=== PATIENT | female | born 1965 | race Caucasian/White ===

== ENCOUNTER 2019-12-26 05:37 | Inpatient (IN) ==
--- NOTE | 2019-12-19 11:04 | EKG Report ---
Test Performed on : 12/19/2019 10:58:56 AM Test Reason : PAT Blood Pressure : / mmHG Vent. Rate : 067 BPM Atrial Rate : 067 BPM P-R Int : 120 ms QRS Dur : 088 ms QT Int : 440 ms P-R-T Axes : 058 067 056 degrees QTc Int : 464 ms Normal sinus rhythm. with sinus arrhythmia. Nonspecific T wave abnormality Prolonged QT Abnormal ECG No previous ECGs available Confirmed by Tyler MCCAULEY, Radu Jaeger ([id number]) on 12/20/2019 7:30:35 AM
[2019-12-19 11:21] LABS: URINE SOURCE VOIDED
[2019-12-19 11:43] LABS: BILIRUBIN URINE NEGATIVE (NEGATIVE); BLOOD URINE SMALL (NEGATIVE); COLOR YELLOW; GLUCOSE URINE NEGATIVE (NEGATIVE); KETONE URINE NEGATIVE (NEGATIVE); LEUKOCYTES URINE NEGATIVE (NEGATIVE); NITRITE URINE NEGATIVE (NEGATIVE); PROTEIN URINE NEGATIVE (NEGATIVE); SP GRAVITY URINE 1.024; TURBIDITY URINE CLEAR (CLEAR); UROBILINOGEN URINE NORMAL (NORMAL)
[2019-12-19 11:44] LABS: UR EPITHELIAL CELLS <10 /HPF (<10); URINE BACTERIA NEGATIVE /HPF; URINE WBC <10 /HPF (<10)
[2019-12-19 12:15] LABS: BASO# 0.36 X1000 (0.0-0.2); BASO% 3.5 % (0.0-0.8); EOS# 0.53 X1000 (0.0-0.7); EOS% 5.1 % (0.0-10.0); HEMATOCRIT 33.3 % (37.0-47.0); HEMOGLOBIN 9.8 g/dL (12.0-16.0); LYMPH# 3.05 X1000 (1.2-3.4); LYMPH% 29.3 % (20.5-51.1); MCH 21.3 PG (27-31); MCHC 29.4 g/dL (33-37); MCV 72.2 FL (81-99); MONO# 0.56 X1000 (0.11-0.59); MONO% 5.4 % (1.7-9.3); NEUT# 5.92 X1000 (1.4-6.5); NEUT% 56.7 % (42.2-75.2); PLT 494 X1000 (130-400); RBC 4.61 XMIL (4.2-5.4); WBC 10.42 X1000 (4.8-10.8)
[2019-12-19 12:21] LABS: EOS 6 % (1-10); LYMPHS 30 % (21-51); MONO 4 % (1-9); SEGS 60 % (42-75)
[2019-12-19 12:22] LABS: HYPOCHROM 1+; MICROCYTOSIS 2+; POIKILOCYTOSIS 1+
--- NOTE | 2019-12-25 21:15 | HISTORY AND PHYSICAL ---
HISTORY OF PRESENT ILLNESS: Mrs. Ferrari is a 54-year-old G3, P0, who presents with complaint of abnormal uterine bleeding/heavy menstrual bleeding-leiomyoma. The patient describes a 10 year history of heavy menstrual bleeding although describes menstrual cycle lasting only 3 days out of the month, reports bleeding is significantly heavy during the 3 days. The patient was counseled prior regarding hysterectomy to help resolve heavy menstrual bleeding secondary to large intramural fibroids. She also reports use of adult diaper when on menstrual cycle to prevent accidents from occurring. The patient denies shortness of breath, chest pain, dizziness, or overt tiredness. PAST MEDICAL HISTORY: Significant for kidney stones, hypertension, migraines. SURGICAL HISTORY: Nephrolithotomy, brain surgery, breast augmentation, lithotripsy, sinus surgery. [employer]IST HISTORY: Last menstrual period 12/05/2019. Pap smear negative for intraepithelial lesions or malignancies. Menarche age 15. 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 Denies gonorrhea, chlamydia, or Trichomonas exposure. OBSTETRICAL HISTORY: G 3, P 0, reports 3 prior miscarriages. SOCIAL HISTORY: Denies tobacco, alcohol, or drug use. MEDICATIONS: Fluticasone nasal spray. Losartan 50 mg daily. Montelukast 10 mg p.o. daily. Diltiazem 30 mg p.o. daily. ALLERGIES: No known drug allergies. FAMILY HISTORY: Noncontributory.Vital signs: Temperature 97.8 degrees Fahrenheit, pulse rate 64, blood pressure 140/88, height 5 feet 4 inches tall, weight 166 pounds, body mass index 28.5 kg/m2. PHYSICAL EXAMINATION: GENERAL: No acute distress. Alert, awake, oriented x3. CARDIOVASCULAR: Regular rate and rhythm. Positive S1, S2. RESPIRATORY: Clear to auscultation bilaterally. Negative rhonchi, rales or wheezing. ABDOMEN: Soft, nontender to palpation. Uterine fibroid palpated at the umbilicus. EXTREMITIES: No calf tenderness. No pedal edema. LABORATORY: WBCs 10.42, hemoglobin 9.8, hematocrit 33.3, platelets 494,000, blood type A positive. Creatinine 0.7. Urine test negative. EKG normal sinus rhythm with sinus arrhythmias. ASSESSMENT: Ms. Ferrari is a 54-year-old G3, P0, with abnormal uterine bleeding/heavy menstrual bleeding-leiomyoma. PLAN: Admit for total abdominal hysterectomy via midline vertical incision due to uterine size. 1. Ultrasound showed a 12 cm uterus with a 12 cm fundal fibroid. 2. Patient counseled on alternatives to surgical procedure, risk and benefits of procedure. Risks, not limited to infection, bleeding, injury to surrounding organs including the bowel, bladder, and ureters. The patient understands risks and agrees to procedure. Discussed removal of bilateral tubes and ovaries. The patient agrees at the age of 54, per recommendations will remove bilateral tubes and ovaries to eliminate potential reoperation from potential ovarian pathology or adnexal pathology. 1. The patient understands with bilateral salpingo-oophorectomy will place the patient in surgical menopause and discuss the potential use of hormonal replacement therapy and risks associated with hormonal replacement therapy. 2. The patient advised NPO midnight after midnight prior to procedure. 3. Plan for admission for least 2 to 3 days post procedure. 4. Plan for IV prophylactic antibiotics 30 minutes prior to procedure incision. [email or web address]
[2019-12-26] MEDS ORDERED: KEFZOL 1 GM/D5W 2 GM/100 ML IVPB ONE (06:13)
[2019-12-26] MEDS ORDERED: LR 1,000 ML ONE ×2 (06:13→09:23)
[2019-12-26] MEDS ORDERED: FENTANYL ONE (06:23)
[2019-12-26] MEDS ORDERED: VERSED ONE ×2 (06:23→07:06)
[2019-12-26] MEDS ORDERED: DIPRIVAN 1% ONE (06:23)
[2019-12-26] MEDS ORDERED: SODIUM CHLORIDE 0.9% 10 ML ONE (06:27)
[2019-12-26] MEDS ORDERED: NORCURON ONE (06:27)
[2019-12-26] MEDS ORDERED: QUELICIN (DOSE) ONE (06:27)
[2019-12-26] MEDS ORDERED: ROBINUL ONE ×2 (06:27→08:08)
[2019-12-26] MEDS ORDERED: XYLOCAINE-MPF 2% ONE (06:27)
--- NOTE | 2019-12-26 06:48 | H&P REVIEW ---
H&P Update H&P Review: H&P was reviewed and patient was examined, No change has occurred in the patient's condition
[2019-12-26] MEDS ORDERED: DECADRON ONE (07:31)
[2019-12-26 07:47] LABS: URINE SOURCE CATH
[2019-12-26] MEDS ORDERED: OFIRMEV 1000 MG/ISOTONIC SOLN 1,000 MG/100 ML BOTTLE ONE (07:49)
[2019-12-26] MEDS ORDERED: ZOFRAN ONE (07:57)
[2019-12-26] MEDS ORDERED: EPHEDRINE ONE (08:06)
[2019-12-26] MEDS ORDERED: NEOSTIGMINE ONE (08:08)
[2019-12-26 08:29] LABS: BILIRUBIN URINE NEGATIVE (NEGATIVE); BLOOD URINE NEGATIVE (NEGATIVE); COLOR YELLOW; GLUCOSE URINE NEGATIVE (NEGATIVE); KETONE URINE NEGATIVE (NEGATIVE); LEUKOCYTES URINE NEGATIVE (NEGATIVE); NITRITE URINE NEGATIVE (NEGATIVE); PROTEIN URINE NEGATIVE (NEGATIVE); SP GRAVITY URINE 1.015; TURBIDITY URINE CLEAR (CLEAR); UROBILINOGEN URINE NORMAL (NORMAL)
[2019-12-26 08:31] LABS: UR EPITHELIAL CELLS <10 /HPF (<10); URINE BACTERIA NEGATIVE /HPF; URINE RBC <10 /HPF (<10); URINE WBC <10 /HPF (<10)
[2019-12-26] MEDS ORDERED: DULCOLAX PR PRN (09:05)
[2019-12-26] MEDS ORDERED: ZOFRAN IV PRN (09:05)
[2019-12-26] MEDS: MORPHINE PCA ONE ×2 (09:10→15:00)
[2019-12-26] MEDS: MORPHINE ONE ×4 (09:16→15:00)
[2019-12-26] MEDS ORDERED: PHENERGAN IV PRN (09:45)
[2019-12-26] MEDS ORDERED: LR 1,000 ML IV SCH (09:45)
[2019-12-26] MEDS ORDERED: MORPHINE PCA IV PRN (09:45)
[2019-12-26] MEDS ORDERED: NARCAN IV PRN (09:45)
[2019-12-26] MEDS ORDERED: NARCAN 0.4 MG in LR 1,000 ML IV PRN (09:45)
[2019-12-26] MEDS ORDERED: SODIUM CHLORIDE 0.9% INJ PRN (09:45)
[2019-12-26] MEDS ORDERED: BENADRYL IV PRN (10:45)
[2019-12-26] MEDS: PYRIDIUM PO SCH ×2 (12:38→17:21)
[2019-12-26] MEDS: TORADOL IV SCH ×4 (12:38→23:51)
[2019-12-26] MEDS: LR 1,000 ML IV SCH ×3 (12:39→23:59)
[2019-12-26] MEDS: OFIRMEV 1000 MG/ISOTONIC SOLN 1,000 MG/100 ML BOTTLE IV SCH ×4 (12:39→23:51)
[2019-12-26] MEDS: MYLICON PO SCH ×4 (12:39→22:58)
[2019-12-26] MEDS: FLONASE NAS SCH (12:40)
[2019-12-26] MEDS: COZAAR PO SCH (12:40)
[2019-12-26] MEDS: SINGULAIR PO SCH (12:40)
[2019-12-26] MEDS: COLACE PO SCH ×2 (19:53→22:57)
[2019-12-26] MEDS: PERIDEX MT SCH ×2 (19:53→22:58)
[2019-12-27] MEDS: OFIRMEV 1000 MG/ISOTONIC SOLN 1,000 MG/100 ML BOTTLE IV SCH (06:02)
[2019-12-27] MEDS: TORADOL IV SCH (06:02)
[2019-12-27 06:57] LABS: HEMATOCRIT 30.8 % (37.0-47.0); MCH 21.5 PG (27-31); MCHC 29.2 g/dL (33-37); MCV 73.7 FL (81-99); MPV 10.3 FL (7.4-10.4); RBC 4.18 XMIL (4.2-5.4); RDW 20.6 % (11.5-14.5); WBC 14.35 X1000 (4.8-10.8)
[2019-12-27] MEDS ORDERED: PERCOCET-10 PO PRN (08:29)
--- NOTE | 2019-12-27 08:38 | PROVIDER PROGRESS NOTE ---
- Subjective Post-op day 1. Patient states she is feeling well this morning with no abdominal pain. States she was able to urinate by herself after the catheter was removed. She states she has not passed any gas or had any bowel movements. Notes she is able to get up and walk around. Patient expresses desire to begin eating and drinking regular food. Physical Exam Objective Vital Signs - 8 hr 12/27/19 04:00 12/27/19 07:21 Temperature 98.3 F 98.6 F Pulse Rate 74 68 Respiratory Rate 16 16 Blood Pressure 160/82 133/75 O2 Sat by Pulse Oximetry 97 96 - Constitutional General Appearance: appears well, alert, no apparent distress - EYES Eyes: PERRL/EOMI, pink conjunctivae - HEAD, EARS, NOSE, MOUTH & THROAT HENMT: normocephalic/atraumatic, moist mucous membranes - NECK Neck: non-tender, full range of motion, supple - RESPIRATORY Respiratory: lungs clear, normal breath sounds - CARDIOVASCULAR Cardiovascular: normal peripheral pulses, regular rate, rhythm, no edema, no gallop, no JVD, no murmur - GASTROINTESTINAL (ABDOMEN) Abdominal Exam: soft, tenderness (Midline incision from GERRI w/BSO Incision c/d/i with maddie insitu) - LYMPHATIC Lymphatic: no adenopathy - MUSCULOSKELETAL Extremity: no pedal edema, no calf tenderness Peripheral Pulses: dorsalis-pedis (R): 2+, dorsalis-pedis (L): 2+ - SKIN Integumentary: normal color - NEUROLOGIC Neurologic: grossly normal - PSYCHIATRIC Psych/Mental Status: normal mood/affect, oriented x 3 Active Medications Generic Name Dose Route Start Last Admin Trade Name Freq PRN Reason Stop Dose Admin Bisacodyl 10 mg 12/26/19 09:05 Dulcolax NV Q6H PRN PRN Gas Chlorhexidine Gluconate 15 ml 12/26/19 21:00 12/26/19 22:58 Peridex MT Not Given BID CATHI Diltiazem HCl 180 mg 12/27/19 09:00 Cardizem Cd PO DAILY CATHI Diphenhydramine HCl 12.5 - 25 mg 12/26/19 10:45 Benadryl IV Q6H PRN PRN Itching Docusate Sodium 100 mg 12/26/19 21:00 12/26/19 22:57 Colace PO Not Given BID CATHI Fluticasone Propionate 1 spray 12/26/19 09:15 12/26/19 12:40 Flonase ZACKARY Not Given DAILY CATHI Acetaminophen 1,000 mg in 100 mls @ 400 mls/hr 12/26/19 09:15 12/27/19 06:02 Ofirmev 1000 Mg/Isotonic Soln IV 400 mls/hr Q6H CATHI Administration Lactated Ringer's 1,000 mls @ 150 mls/hr 12/26/19 09:15 12/26/19 23:59 Lr IV 150 mls/hr .[id number] CATHI Administration Lactated Ringer's 1,000 mls @ 42 mls/hr 12/26/19 09:45 12/26/19 12:41 Lr IV 42 mls/hr .[id number] CATHI Administration KVO Naloxone HCl 0.4 mg/ Lactated 1,001 mls @ 50 mls/hr 12/26/19 09:45 Ringer's IV PRN PRN RELIEVE ITCHING Ketorolac Tromethamine 30 mg 12/26/19 15:08 12/27/19 06:02 Toradol IV 12/27/19 09:09 30 mg Q6H CATHI Administration Losartan Potassium 50 mg 12/26/19 09:15 12/26/19 12:40 Cozaar PO Not Given DAILY [facility] Montelukast Sodium 10 mg 12/26/19 09:15 12/26/19 12:40 Singulair PO 10 mg DAILY CATHI Administration Morphine Sulfate 0 mg 12/26/19 09:45 12/26/19 14:11 Morphine Online Activist IV 30 mg PRN PRN Administration Pain Naloxone HCl 0.2 mg 12/26/19 09:45 Narcan IV PRN PRN DECREASED RESPIRATORY RATE Ondansetron HCl 4 mg 12/26/19 09:05 Zofran IV Q8H PRN PRN Nausea Phenazopyridine HCl 200 mg 12/26/19 13:00 12/26/19 17:21 Pyridium PO 200 mg TID CATHI Administration Promethazine HCl 12.5 mg 12/26/19 09:45 Phenergan IV Q6H PRN PRN Nausea Simethicone 80 mg 12/26/19 13:00 12/26/19 22:58 Mylicon PO Not Given PC + HS [facility] Sodium Chloride 10 ml 12/26/19 09:45 Sodium Chloride 0.9% INJ PRN PRN TO DILUTE PHENERGAN FOR IV USE Zolpidem Tartrate 5 mg 12/26/19 09:05 Ambien PO HS PRN PRN Sleep Laboratory Results - last 24 hr 12/26/19 12/27/19 07:09 06:10 WBC 14.35 H RBC 4.18 L Hgb 9.0 L Hct 30.8 L MCV 73.7 L MCH 21.5 L MCHC 29.2 L RDW Std Deviation 20.6 H Plt Count 517 H MPV 10.3 Urine WBC (Auto) <10 Urine RBC (Auto) <10 U Epithel Cells (Auto) <10 Urine Bacteria (Auto) NEGATIVE - Assessment & Plan (1) S/P GERRI-BSO (total abdominal hysterectomy and bilateral salpingo- oophorectomy) Status: Acute Plan: 1. Pain Controlled with Morphine [employer] and Toradol. D/C [employer]. Continue Toradol and PO pain medication 2. Advance diet to regular meals once patient has passed gas 3. Encourage Ambulation to prevent deconditioning 4. SCD use for DVT prophylaxis 5. Colace for Constipation 6. d/c brooks cath - Progress Note Disposition: Ms. Ferrari is a 54 year old female status post EGRRI w/BSO day 1. She is currently tolerating clear fluids and thin soups. Patient is tolerating recovery process well and will possibly be discharged tomorrow.
[2019-12-27] MEDS: CARDIZEM CD PO SCH (09:27)
[2019-12-27] MEDS: COLACE PO SCH ×2 (09:27→22:02)
[2019-12-27] MEDS: MYLICON PO SCH ×4 (09:28→22:02)
[2019-12-27] MEDS: COZAAR PO SCH (09:28)
[2019-12-27] MEDS: PYRIDIUM PO SCH ×3 (09:29→17:22)
[2019-12-27] MEDS: SINGULAIR PO SCH (09:29)
[2019-12-27] MEDS: FLONASE NAS SCH (09:30)
[2019-12-27] MEDS: PERIDEX MT SCH ×2 (09:30→22:03)
[2019-12-27] MEDS: MOTRIN PO SCH ×3 (09:31→23:36)
[2019-12-27] MEDS ORDERED: XANAX PO ONE (11:36)
[2019-12-27] MEDS ORDERED: ZOFRAN PO PRN (12:22)
[2019-12-27] MEDS ORDERED: FLU VACCINE IM ONE (16:53)
[2019-12-27] MEDS: AMBIEN PO PRN ×2 (23:36→23:38)
[2019-12-28] MEDS ORDERED: TORADOL PO SCH (06:45)
[2019-12-28 07:24] VITALS: BP 143/70
[2019-12-28] MEDS: FLONASE NAS SCH (08:34)
[2019-12-28] MEDS: PYRIDIUM PO SCH (08:34)
[2019-12-28] MEDS: SINGULAIR PO SCH (08:35)
[2019-12-28] MEDS: CARDIZEM CD PO SCH (08:35)
[2019-12-28] MEDS: COLACE PO SCH (08:35)
[2019-12-28] MEDS: MYLICON PO SCH (08:35)
[2019-12-28] MEDS: PERIDEX MT SCH ×2 (08:36→08:47)
[2019-12-28] MEDS: COZAAR PO SCH (08:36)
== END 2019-12-28 09:47 | disposition home or self-care (01) | DRG 743 ==
LOC: SURHOLD 05:37 → 4N 08:00
PROVIDERS: ADMIT Obstetrics & Gynecology; ATTEND Obstetrics & Gynecology